=== PATIENT | female | born 1990 | race African-American/Black ===

== ENCOUNTER 2018-03-07 10:09 | Emergency (ER) | payer BC, OTHER ==
[2018-03-07 10:35] VITALS: BP 120/57; PULSE 76; TEMP 99.6; BMI 33.5
--- NOTE | 2018-03-07 11:30 | PDOC ---
History of Present Illness - General Chief Complaint: Pain Stated Complaint: RT FINGER IN FECTION Time Seen by Provider: 03/07/18 11:09 History Source: Patient Exam Limitations: No Limitations - History of Present Illness Initial Comments: 03/07/18 11:23 27 yr female with injury to the right index finger slammed in car door yesterday. Pt took motrin yesterday with no relief. Past History - Past Medical History Allergies/Adverse Reactions: Allergies Allergy/AdvReac Type Severity Reaction Status Date / Time No Known Allergies Allergy Verified 03/07/18 10:31 Home Medications: Ambulatory Orders NK [No Known Home Medication] 03/07/18 Asthma: No Cancer: No Cardiac Disorders: No COPD: No Diabetes: No HTN: No Seizures: No Thyroid Disease: No - Reproductive History (#): 2 Para: 0 Therapeutic (s) & number: Yes Spontaneous : 0 - Immunization History Immunization Up to Date: Yes - Suicide/Smoking/Psychosocial Hx Smoking History: Never smoked Have you smoked in the past 12 months: No Hx Alcohol Use: No Drug/Substance Use Hx: No Substance Use Type: None Hx Substance Use Treatment: No *Physical Exam - Vital Signs Last Vital Signs Temp Pulse Resp BP Pulse Ox 99.6 F 76 20 120/57 97 03/07/18 10:32 03/07/18 10:32 03/07/18 10:32 03/07/18 10:32 03/07/18 10:32 - Physical Exam General Appearance: Yes: Nourished, Appropriately Dressed HEENT: positive: EOMI, SYLWIA Extremity: positive: Normal Capillary Refill, Tender (distal tip right index finger , subungal hematoma to the proximal fourth ) Neurologic: positive: Fully Oriented, Alert, Normal Mood/Affect, Normal Response , Motor Strength 5/5 Medical Decision Making - Medical Decision Making 03/07/18 11:37 cc: right index finger crushed in car door yesterday, small subungal hematoma to the area, FROM bruising noted pt unsure of LMP 01/29/18 positive pt consented to the xray pt is shielded for the xray and signed consent with the cytology technologist 03/07/18 12:03 *DC/Admit/Observation/Transfer Diagnosis at time of Disposition: Finger contusion Qualifiers: Encounter type: initial encounter Finger: index finger Damage to nail status: with damage Laterality: right Qualified Code(s): S60.121A - Contusion of right index finger with damage to nail, initial encounter - Discharge Dispostion Disposition: HOME Condition at time of disposition: Good - Referrals Referrals: Darius Branes MD [Staff Physician] - - Patient Instructions Additional Instructions: apply ice every 2hrs for 20 minutes for the next 2 days take ibuprofen 600mg every 8hrs for pain follow with the orthopedist for follow up follow with your sales representative [employer] regarding positive test today - Post Discharge Activity
[2018-03-07] MEDS ORDERED: ACETAMINOPHEN 325 MG TABLET (FP) ONE (11:50)
[2018-03-07] MEDS ORDERED: ACETAMINOPHEN 325 MG TABLET (FP) PO ONE (11:51)
== END 2018-03-07 12:07 | disposition home or self-care (01) ==
LOC: JERFT 10:09
DX: S60.121A Contusion of right index finger with damage to nail, initial encounter (principal); X58.XXXA Exposure to other specified factors, initial encounter; Y93.89 Activity, other specified; Y92.9 Unspecified place or not applicable
CPT/HCPCS: 73140-TC-RT-FY; 84703; 99281-25

== ENCOUNTER 2021-10-31 18:23 | Emergency (ER) | payer OTHER ==
[2021-10-31 18:44] VITALS: TEMP 99.6; BMI 30.9
[2021-10-31 22:24] VITALS: BP 120/76; PULSE 72
== END 2021-10-31 22:23 | disposition home or self-care (01) ==
LOC: JER 18:23
DX: S09.93XA Unspecified injury of face, initial encounter (principal); Y04.8XXA Assault by other bodily force, initial encounter
CPT/HCPCS: 70450-TC; 70486-TC; 99284-25

== ENCOUNTER 2021-12-28 18:42 | Inpatient (IN) | payer OTHER ==
[2021-12-28 18:50] VITALS: BMI 31.8
[2021-12-28] MEDS ORDERED: ACETAMINOPHEN 1000 MG/100 ML BAG IVPB ONE (20:45)
[2021-12-28] MEDS ORDERED: LACTATED RINGERS SOLUTION 1000 ML INFUS.BAG IV ONE (21:02)
[2021-12-28] MEDS ORDERED: ACETAMINOPHEN INJECTION 100 ML IVPB ONE ×2 (21:47→22:05)
[2021-12-28 22:36] LABS: CALCIUM 8.9 mg/dL (8.5-10.1)
[2021-12-28 22:37] LABS: ALBUMIN 3.6 g/dl (3.4-5.0); BLOOD UREA NITROGEN 9.5 mg/dL (7-18)
[2021-12-28 22:40] LABS: CREATININE 0.7 mg/dL (0.55-1.3)
[2021-12-28 22:42] LABS: BILIRUBIN,TOTAL 0.8 mg/dL (0.2-1)
[2021-12-29 00:20] LABS: BASO % 0.8 % (0-2.0); EOS % 0.5 % (0-4.5); HEMATOCRIT 32.3 % (32.4-45.2); HEMOGLOBIN 10.6 GM/dL (10.7-15.3); LYMPH % 16.8 % (8-40); MCH 27.5 pg (25.7-33.7); MCHC 32.8 g/dl (32.0-36.0); MEAN CELL VOLUME 83.9 fl (80-96); MEAN PLT VOLUME 10.3 fl (7.5-11.1); MONO % 7.5 % (3.8-10.2); NEUT % 74.4 % (42.8-82.8); PLATELET COUNT 212 10^3/uL (134-434); RBC 3.85 M/mm3 (3.60-5.2); RDW 13.9 % (11.6-15.6); WHITE BLOOD COUNT 11.8 K/mm3 (4.0-10.0)
[2021-12-29 02:43] LABS: EPI CELLS 15 /uL (0-25.1); HYALINE CASTS 9 /uL (0-3.1); URINE APPEARANCE CLEAR; URINE BACTERIA 51 /uL (0-1359); URINE BILIRUBIN NEGATIVE (NEGATIVE); URINE COLOR YELLOW; URINE GLUCOSE (UA) NEGATIVE (NEGATIVE); URINE KETONE NEGATIVE (NEGATIVE); URINE LEUK ESTERASE NEGATIVE (NEGATIVE); URINE NITRITE NEGATIVE (NEGATIVE); URINE PROTEIN 3+ (NEGATIVE); URINE RBC 45619 /uL (0-23.9); URINE UROBILINOGEN 0.2 mg/dL (0.2-1.0); URINE WBC 19 /uL (0-25.8)
[2021-12-29] MEDS ORDERED: SODIUM CHLORIDE 1,000 ML IV SCH (03:30)
[2021-12-29 15:37] LABS: HEMATOCRIT 30.1 % (32.4-45.2); HEMOGLOBIN 9.7 GM/dL (10.7-15.3); MCH 27.2 pg (25.7-33.7); MCHC 32.2 g/dl (32.0-36.0); MEAN CELL VOLUME 84.4 fl (80-96); MEAN PLT VOLUME 10.6 fl (7.5-11.1); PLATELET COUNT 186 10^3/uL (134-434); RBC 3.56 M/mm3 (3.60-5.2)
[2021-12-29 16:09] LABS: ANISOCYTOSIS 1+; MACROCYTOSIS 0; OVALOCYTE 1+
[2021-12-29 17:39] VITALS: BP 105/66; PULSE 63; TEMP 98.4
== END 2021-12-29 19:16 | disposition home or self-care (01) | DRG 779 ==
LOC: JER 18:42 → JERBED 12-29 03:08
PROVIDERS: ADMIT Obstetrics & Gynecology; ATTEND Obstetrics & Gynecology
DX: O02.1 Missed abortion (principal); N83.12 Corpus luteum cyst of left ovary
CPT/HCPCS: 0241U-QW; 36415; 76817-TC; 80053; 81003; 84702; 85025; 86850; 86900; 86901; 87077; 87086; 99285-25